=== PATIENT | male | born 1955 | race Caucasian/White ===

== ENCOUNTER 2022-02-26 09:20 | Emergency (ER) | payer MEDICARE, OTHER ==
[2022-02-26] MEDS ORDERED: Cephalexin 250 MG CAP ONE (10:03)
[2022-02-26] MEDS ORDERED: methylPREDNISolone Sod Succ/PF 125 MG/2 ML VIAL ONE (10:03)
== END 2022-02-26 10:15 | disposition home or self-care (01) ==
LOC: BURERS 09:20
DX: R21 Rash and other nonspecific skin eruption (principal)
CPT/HCPCS: 96372; 99282; J2930